=== PATIENT | male | born 2000 | race Caucasian/White ===

== ENCOUNTER 2023-09-15 09:19 | Emergency (ER) | payer OTHER ==
[2023-09-15] MEDS ORDERED: NA CHLORIDE 0.9% 0 ML ONE (09:28)
[2023-09-15 09:48] LABS: Specific Gravity > 1.030 (1.005-1.030); Sqamous Epithelial <5 /HPF (None Seen); Urine Bacteria None Seen /HPF (<20); Urine Bilirubin NEGATIVE (Negative); Urine Blood Negative (Negative); Urine Clarity Clear (Clear); Urine Color Yellow (Yellow); Urine Culture Reflex Order NOT NEEDED; Urine Glucose NEGATIVE (Negative); Urine Ketones 3+ (Negative); Urine Microscopic Reflex YN ORDER UMIC; Urine Mucus 4+ /HPF (None Seen); Urine Nitrite NEGATIVE (Negative); Urine Protein 1+ (Negative); Urine Urobilinogen 1+ (Normal); Urine WBC <5 /HPF (<5)
[2023-09-15 09:48] LABS: Absolute Eosinophils 0.1 K/uL (0-0.5); Absolute Lymphocytes (CBC) 1.3 K/uL (0.7-4.9); Absolute Monocytes 0.6 K/uL (0.1-1.3); Absolute Neutrophil 4.7 K/uL (1.8-8.0); Basophils % 0.6 % (0-1.3); Eosinophils % 1.1 % (0-4.4); Hematocrit 48.4 % (39.6-49.0); Hemoglobin 16.4 g/dL (13.6-17.9); Lymphocytes % 18.9 % (15.3-44.8); MCH 27.8 pg (27.0-35.0); MCHC 33.8 g/dL (32.0-36.0); MCV 82.1 fL (80-100); MPV 7.7 fL (7.6-11.3); Monocytes % 9.3 % (3.3-12.3); Neutrophils % 70.1 % (41.7-73.7); Nucleated Red Blood Cells % 0.1 % (0-0); Platelets 265 thou/uL (152-406); Red Cell Distribution Width 12.1 % (12.1-15.2)
[2023-09-15 09:53] LABS: Barbiturates NEGATIVE (NEGATIVE); Benzodiazepines NEGATIVE (NEGATIVE); Cocaine NEGATIVE (NEGATIVE); METHAMPHETAM NEGATIVE (NEGATIVE); Methadone NEGATIVE (NEGATIVE); Opiates NEGATIVE (NEGATIVE); Phencyclidine NEGATIVE (NEGATIVE); THC Cannibis POSITIVE (NEGATIVE)
[2023-09-15 10:05] LABS: ALT/SGPT 17 U/L (16-61); Albumin 4.8 g/dL (3.4-5.0); Albumin/Globulin Ratio 1.2 (1.1-1.8); Alkaline Phosphatase 56 U/L (45-117); Anion Gap 9.7 mEq/L (5.0-15.0); BUN Blood Urea Nitrogen 19 mg/dL (7-18); Bicarbonate 27 mEq/L (21-32); Bilirubin Total 1.2 mg/dL (0.2-1.0); Glomerular Filtration Rate 76 ml/min (=/>90); Glucose Level 97 mg/dL (74-106); Lipase 25 U/L (13-75); Potassium 3.7 mEq/L (3.5-5.1); Protein, Total 8.8 g/dL (6.4-8.2); Sodium Level 134 mEq/L (136-145)
[2023-09-15 10:06] LABS: AST/SGOT < 10 U/L (15-37)
--- NOTE | 2023-09-15 10:25 | RAD REPORT ---
EXAM DESCRIPTION: CTAbdomen Pelvis W Contrast - 09/15/2023 9:55 am CLINICAL HISTORY: Abdominal pain. ABD PAIN COMPARISON: No comparisons TECHNIQUE: Biphasic CT imaging of the abdomen and pelvis was performed with 100 ml non-ionic IV cont rast. All CT scans are performed using dose optimization technique as appropriate and may include automated exposure control or mA/KV adjustment according to patient size. FINDINGS: The lung bases are clear. The liver, spleen, pancreas, adrenal glands and kidneys are within normal limits. No bowel obstruction, free air, free fluid or abscess. The appendix is normal. No evidence of signi ficant lymphadenopathy. No suspicious bony findings. IMPRESSION: No acute intra-abdominal or pelvic finding.
--- NOTE | 2023-09-15 10:43 | ER ---
Nurse's Notes [facility] Name: Tristan Marina Age: 23 yrs Sex: Male : 2000 Arrival Date: 09/15/2023 Time: 09:19 Bed 4 Private MD: Diagnosis: Abdominal pain, dehydration Presentation: 09/14 09:25 Chief complaint: Patient states: Upper abdominal pain for 1 month. N/V last night. ll1 Coronavirus screen: Client denies travel out of the [place] in the last 14 days. At this time, the client does not indicate any symptoms associated with coronavirus-19. Ebola Screen: Patient denies travel to an Ebola-affected area in the 21 days before illness onset. Initial Sepsis Screen: Does the patient meet any 2 criteria? No. Patient's initial sepsis screen is negative. Does the patient have a suspected source of infection? No. Patient's initial sepsis screen is negative. Risk Assessment: Do you want to hurt yourself or someone else? Patient reports no desire to harm self or others. Onset of symptoms was August 15, 2023. 09:25 Method Of Arrival: Ambulatory [facility] 09:25 Acuity: BRITTANY 3 ll1 Triage Assessment: 09:30 General: Appears uncomfortable, ill, Behavior is calm, cooperative, appropriate for 1 age. Pain: Complains of pain in abdomen Quality of pain is described as aching, crampy. GI: Reports upper abdominal pain, nausea. Historical: - Allergies: 09:25 No Known Allergies; ll1 - PMHx: 09:25 None; ll1 - PSHx: 09:25 None; ll1 - Immunization history:: Adult Immunizations up to date. - Infectious Disease History:: Denies. - Social history:: Smoking status: Reported history of juuling and/or vaping. Screenin:[address] [facility] ED Fall Risk Assessment (Adult) History of falling in the last 3 months, db including since admission No falls in past 3 months (0 pts) Confusion or Disorientation No (0 pts) Intoxicated or Sedated No (0 pts) Impaired Gait No (0 pts) Mobility Assist Device Used No (0 pt) Altered Elimination No (0 pt) Score/Fall Risk Level 0 - 2 = Low Risk Oriented to surroundings, Maintained a safe environment. Abuse screen: Denies threats or abuse. Denies injuries from another. Nutritional screening: No deficits noted. Tuberculosis screening: No symptoms or risk factors identified. Assessment: 10:59 Reassessment: Patient appears in no apparent distress at this time. Patient and/or db family updated on plan of care and expected duration. Pain level reassessed. Patient is alert, oriented x 3, equal unlabored respirations, skin warm/dry/pink. ABD CRAMPING. General: Appears in no apparent distress. uncomfortable, Behavior is calm, cooperative. Pain: Complains of pain in abdomen. Neuro: Level of Consciousness is awake, alert, obeys commands, Oriented to person, place, time, situation. Respiratory: Airway is patent Respiratory effort is even, unlabored, Respiratory pattern is regular, symmetrical. 11:35 Reassessment: Patient appears in no apparent distress at this time. Patient and/or db family updated on plan of care and expected duration. Pain level reassessed. Patient is alert, oriented x 3, equal unlabored respirations, skin warm/dry/pink. Patient states feeling better. Vital Signs: 09:25 BP 133 / 82; Pulse 64; Resp 17; Temp 98; Pulse Ox 97% on R/A; Weight 58.97 kg; Height 5 ll1 ft. 11 in. ; Pain 7/10; 10:45 BP 106 / 66; Pulse 60; Resp 16; Pulse Ox 98% ; db 11:00 BP 107 / 76; Pulse 65; Resp 18; Pulse Ox 98% on R/A; db 09:25 Body Mass Index 18.13 (58.97 kg, 180.34 cm) ll1 09:25 Pain Scale: Adult ll1 ED Course: 09:22 Patient arrived in ED. rg4 09:22 Bridgette York MD is Attending Physician. sp3 09:25 Arm band placed on Patient placed in an exam room, on a stretcher. ll1 09:27 Dorota Curry RN is Primary Nurse. kc6 09:48 Inserted saline lock: 20 gauge in right antecubital area, using aseptic technique. kc6 Blood collected. 09:56 CT Abd/Pelvis - IV Contrast Only In Process Unspecified. EDMS 10:41 Mark Lopez MD is Referral Physician. sp3 10:53 Triage completed. ll1 11:00 Patient has correct armband on for positive identification. Bed in low position. Call db light in reach. Side rails up X 1. Pulse ox on. NIBP on. Warm blanket given. 11:32 No provider procedures requiring assistance completed. IV discontinued, intact, db bleeding controlled, No redness/swelling at site. 11:32 Provided Education on: DISCHARGE. db Administered Medications: 10:52 Drug: NS 0.9% IV 500 ml IV at bolus once Route: IV; Rate: bolus; Site: right db antecubital; 11:36 Follow up: Response: No adverse reaction; IV Status: Completed infusion; IV Intake: db 500ml 10:58 Drug: Dicyclomine PO 10 mg PO once Route: PO; db 11:35 Follow up: Response: No adverse reaction db Medication: 11:00 VIS not applicable for this client. db Intake: 11:36 IV: 500ml; Total: 500ml. db Outcome: 10:42 Discharge ordered by MD. torrez 11:32 Discharged to home ambulatory, db 11:32 Condition: stable 11:32 Discharge instructions given to patient, Instructed on discharge instructions, follow up and referral plans. 11:35 Patient left the ED. ll1 Signatures: Dispatcher [employer] Laure Nunez rg4 Rafi Boone, RN RN ll1 Bridgette York MD MD sp3 Dorota Curry RN RN kc6 Jacqueline Alejo RN RN db
--- NOTE | 2023-09-15 10:43 | EDPHYS ---
Physician Documentation [facility] Name: Tristan Marina Age: 23 yrs Sex: Male : 2000 Arrival Date: 09/15/2023 Time: 09:19 Bed 4 Private MD: ED Physician Bridgette York HPI: 09/14 09:27 This 23 yrs old Male presents to ER via Unassigned with complaints of Abdominal Pain. sp3 09:27 23-year-old male with no significant past medical history presents with chief complaint sp3 epigastric abdominal pain off and on for 1 month. Patient states that he has had an increase in his vaping and a poor diet along this time. As well. He presented to urgent care approximately 2 weeks ago where he was diagnosed with gastritis and put on pantoprazole which she has been taking off-and-on which has not significantly improved. His pain radiates straight to his back from the epigastric region. He denies any flank pain, dysuria, urinary frequency, gross visualized hematuria, vomiting, diarrhea, chest pain, shortness of breath, bleeding of any type, melena/dark stools, or any other concerning symptoms. Review of systems otherwise negative.. Historical: - Allergies: 09:25 No Known Allergies; ll1 - PMHx: 09:25 None; ll1 - PSHx: 09:25 None; ll1 - Immunization history:: Adult Immunizations up to date. - Infectious Disease History:: Denies. - Social history:: Smoking status: Reported history of juuling and/or vaping. ROS: 09:28 Constitutional: Negative for fever, chills, and weight loss, Eyes: Negative for injury, sp3 pain, redness, and discharge, ENT: Negative for injury, pain, and discharge, Neck: Negative for injury, pain, and swelling, Cardiovascular: Negative for chest pain, palpitations, and edema, Respiratory: Negative for shortness of breath, cough, wheezing, and pleuritic chest pain, Back: Negative for injury and pain, MS/Extremity: Negative for injury and deformity, Skin: Negative for injury, rash, and discoloration, Neuro: Negative for headache, weakness, numbness, tingling, and seizure, Psych: Negative for depression, anxiety, suicide ideation, homicidal ideation, and hallucinations, Allergy/Immunology: Negative for hives, rash, and allergies, Endocrine: Negative for neck swelling, polydipsia, polyuria, polyphagia, and marked weight changes, Hematologic/Lymphatic: Negative for swollen nodes, abnormal bleeding, and unusual bruising, 09:28 All other systems are negative, Exam: :29 Constitutional: This is a well developed, well nourished patient who is awake, alert, sp3 and in no acute distress. Head/Face: Normocephalic, atraumatic. Eyes: Pupils equal round and reactive to light, extra-ocular motions intact. Lids and lashes normal. Conjunctiva and sclera are non-icteric and not injected. Cornea within normal limits. Periorbital areas with no swelling, redness, or edema. Neck: Trachea midline, no thyromegaly or masses palpated, and no cervical lymphadenopathy. Supple, full range of motion without nuchal rigidity, or vertebral point tenderness. No Meningismus. Chest/axilla: Normal chest wall appearance and motion. Nontender with no deformity. No lesions are appreciated. Cardiovascular: Regular rate and rhythm with a normal S1 and S2. No gallops, murmurs, or rubs. Normal PMI, no JVD. No pulse deficits. Respiratory: Lungs have equal breath sounds bilaterally, clear to auscultation and percussion. No rales, rhonchi or wheezes noted. No increased work of breathing, no retractions or nasal flaring. Back: No spinal tenderness. No costovertebral tenderness. Full range of motion. Skin: Warm, dry with normal turgor. Normal color with no rashes, no lesions, and no evidence of cellulitis. MS/ Extremity: Pulses equal, no cyanosis. Neurovascular intact. Full, normal range of motion. Neuro: Awake and alert, GCS 15, oriented to person, place, time, and situation. Cranial nerves II-XII grossly intact. Motor strength 5/5 in all extremities. Sensory grossly intact. Cerebellar exam normal. Normal gait. Psych: Awake, alert, with orientation to person, place and time. Behavior, mood, and affect are within normal limits. 09:29 Abdomen/GI: Epigastric pain noted to palpation without peritoneal signs, rebound or guarding. Nonsurgical abdomen. No CVA tenderness., Vital Signs: 09:25 BP 133 / 82; Pulse 64; Resp 17; Temp 98; Pulse Ox 97% on R/A; Weight 58.97 kg; Height 5 ll1 ft. 11 in. ; Pain 7/10; 10:45 BP 106 / 66; Pulse 60; Resp 16; Pulse Ox 98% ; db 11:00 BP 107 / 76; Pulse 65; Resp 18; Pulse Ox 98% on R/A; db 09:25 Body Mass Index 18.13 (58.97 kg, 180.34 cm) ll1 09:25 Pain Scale: Adult ll1 MDM: 09:23 Patient medically screened. sp3 09:29 Data reviewed: vital signs, nurses notes, lab test result(s), radiologic studies. ED sp3 course: 23-year-old male with epigastric abdominal pain. Differential diagnosis includes gastritis, peptic ulcer disease, pancreatitis, biliary pathology including ductal and/or gallbladder stones, colitis, UTI/pyelonephritis spectrum, kidney stone, among others. Workup will include CT scan of the abdomen pelvis with IV contrast, laboratory values and urine analysis. Further medication will be layered on as indicated. Disposition pending workup and patient course.. 10:40 ED course: Laboratory values demonstrate mild dehydration otherwise no acute findings. sp3 CT scan of the abdomen pelvis is negative. Will discharge patient home with instructions for avoiding any vaping and bland diet as well as continuing the pantoprazole he already has. Follow-up with GI as also been given.. 09/14 09:27 Order name: CBC with Diff; Complete Time: 10:15 sp3 09/14 09:27 Order name: CMP; Complete Time: 10:15 sp3 09/14 09:27 Order name: Lipase; Complete Time: 10:15 sp3 09/14 09:27 Order name: Urinalysis w/ reflexes; Complete Time: 10:15 sp3 09/14 09:27 Order name: UDS; Complete Time: 10:15 sp3 09/14 09:27 Order name: CT Abd/Pelvis - IV Contrast Only; Complete Time: 10:27 sp3 09/14 09:27 Order name: IV Saline Lock; Complete Time: 09:48 sp3 09/14 09:27 Order name: Labs collected and sent; Complete Time: 09:48 sp3 09/14 10:30 Order name: Vital Signs; Complete Time: 10:59 sp3 Administered Medications: 10:52 Drug: NS 0.9% IV 500 ml IV at bolus once Route: IV; Rate: bolus; Site: right db antecubital; 11:36 Follow up: Response: No adverse reaction; IV Status: Completed infusion; IV Intake: db 500ml 10:58 Drug: Dicyclomine PO 10 mg PO once Route: PO; db 11:35 Follow up: Response: No adverse reaction db Disposition Summary: 09/15/23 10:42 Discharge Ordered Notes: Location: Home sp3 Condition: Stable sp3 Diagnosis - Abdominal pain, dehydration sp3 Followup: sp3 - With: Mark Lopez MD - When: Upon discharge from the Emergency Department - Reason: Recheck today's complaints Discharge Instructions: - Discharge Summary Sheet sp3 - Abdominal Pain, Adult sp3 Forms: - Medication Reconciliation Form sp3 - Antibiotic Education sp3 - Prescription Opioid Use sp3 - Patient Portal Instructions sp3 - Leadership Thank You Letter sp3 Signatures: Dispatcher [employer] Rafi Stern RN RN ll1 Bridgette York MD MD sp3 Jacqueline Alejo RN RN db Corrections: (The following items were deleted from the chart) 09:28 09:28 Abdomen Pelvis W Con+CT.RAD.BRZ ordered. EDMS EDMS
[2023-09-15] MEDS ORDERED: NA CHLORIDE 0.9% 500 ML ONE (10:50)
[2023-09-15] MEDS ORDERED: DICYCLOMINE HCL 10 MG CAP ONE (10:55)
[2023-09-15 12:33] VITALS: BP 107/76; TEMP 98; O2SAT 98
== END 2023-09-15 11:35 | disposition home or self-care (01) ==
LOC: ER 09:19
DX: R10.13 Epigastric pain (principal); E86.0 Dehydration
CPT/HCPCS: 85025; 81001; 36415; 83690; 80053; 80307; 74177; 96360; 99284; Q9967; J7040